=== PATIENT | female | born 1955 ===

== ENCOUNTER 2023-11-16 09:16 | Outpatient (AMB) | payer MEDICAID, SELFPAY ==
--- NOTE | 2023-11-16 09:18 | A.OFFVIS_ITS ---
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 She reports that the pain started 4 months ago. She denies injury or a fall. She also reports having arthritis in her feet. She reports pain travels up from her right side and travels all the way up the right side of her body. Strategic Development Manager Required: Yes Strategic Development Manager Services: Strategic Development Manager Present Strategic Development Manager Name: [id number] Allergies No Known Allergies Allergy (Verified 11/16/23 09:25) Medication List - Last Reconciled 11/16/23 by Maeve Oakes RN acetaminophen 650 mg PO Q6H PRN diclofenac sodium 1% (Arthritis Pain (diclofenac)) 2 grams topical QID omeprazole 10 mg PO DAILY HPI Comments Details: New onset back pain, without inciting injuries. Across the back, going to right side, to the groin, thigh, calf and ankle. Feels like electricity and some stabbing pain. Denies numbness. More pain with raising right leg. No imaging. Referred by PCP to PT but has not yet started. She says it is because she is to have bowel surgery for diverticulitis and she plans to start PT after surgery. Surgery not yet scheduled yet, getting clearance first. She does not think the back pain and abdominal pain are associated. She also suffers from left knee pain, from DJD. Affects her gait and getting up. Review of Systems Const All systems reviewed & are unremarkable except as noted in HPI and below Physical Exam Constitutional: Patient appears to be in no acute distress, well nourished and well developed. Patient was appropriately conversant and oriented. Good historian. MSK: No specific abnormalities found on inspection of the spine and all extremities. No pain with palpation over the lumbar area or spinous processes or paraspinals. The right SI joint. Tender right groin. Lumbar ROM was full. Bilateral hip, knee and ankle ROM WNL. No ligamentous laxity or crepitance. No increased effusion. Straight-leg raising test and slump sit positive right. FABERE test negative. Give-way weakness on right hip flexion due to pain. Neurological: No footdrop. Savage?s negative bilaterally. Babinski was down going bilaterally. Clonus was negative. Gait is antalgic without loss of balance. Results Reviewed Results Reviewed: I reviewed records from the following: [facility] Assessment & Plan Assessment & Plan (1) Degenerative joint disease of right hip: Code(s): M16.11 - Unilateral primary osteoarthritis, right hip Category: Medical Qualifiers: Osteoarthritis type: primary Qualified Code(s): M16.11 - Unilateral primary osteoarthritis, right hip (2) Sacroiliac joint dysfunction of right side: Code(s): M53.3 - Sacrococcygeal disorders, not elsewhere classified Category: Medical (3) Right lumbar radiculitis: Code(s): M54.16 - Radiculopathy, lumbar region Category: Medical Plan Acute onset right-sided back and hip pain, without inciting injuries. Differential diagnosis: Right hip DJD causing the right groin pain versus right SI joint dysfunction versus right lumbar radiculitis. Can take Tylenol only. Unable to take/prescribe NSAIDs or oral prednisone burst due to upcoming bowel surgery and history of gastritis. We will send for x-rays: Lumbar and hip. Depending on results, may need further imaging. Encouraged to start physical therapy [facility] regardless of bowel surgeries schedule. New referral placed. Assessment and plan discussed with patient, and patient was agreeable. All questions were answered thoroughly. Peggy Lara MD, TENISHA Board Certified, [place] [employer] and [employer] (ABPMR) Board Certified, [place] [employer] (ABEM) Orders: Orders XR lumbar spine 2-3V Today M54.9 - Dorsalgia, unspecified XR hip RT min 2V Today M25.551 - Pain in right hip PT Evaluation and Treatment Today M16.11 - Unilateral primary osteoarthritis, right hip, M53.3 - Sacrococcygeal disorders, not elsewhere classified, M54.16 - Radiculopathy, lumbar region Coding Level of Care Code New Pt Level 4 (34757) Diagnoses Primary osteoarthritis of right hip M16.11 Osteoarthritis type: primary Sacroiliac joint dysfunction of right side M53.3 Right lumbar radiculitis M54.16
== END 2023-11-16 10:06 | disposition home or self-care (01) ==
PROVIDERS: PCP Student in an Organized Health Care Education/Training Program; Visit Provider Physical Medicine & Rehabilitation
DX: M16.11 Unilateral primary osteoarthritis, right hip (principal); M53.3 Sacrococcygeal disorders, not elsewhere classified; M54.16 Radiculopathy, lumbar region
CPT/HCPCS: 99204

== ENCOUNTER 2023-11-16 09:16 | Outpatient (REF) | payer MEDICAID, SELFPAY ==
--- NOTE | ~2023-11-16 | XR_ITS ---
EXAMINATION: XR HIP, RIGHT CLINICAL INFORMATION: M25.551 - Pain in right hip COMPARISON: None available. TECHNIQUE: Two views of the right hip. FINDINGS: No fracture. Alignment is anatomic. Hip joint space is maintained. Soft tissues are unremarkable. XR/XR hip RT min 2V IMPRESSION: Normal right hip. Electronically signed by: Edwin Jernigan MD 01/26/2024 02:55 PM EST
--- NOTE | ~2023-11-16 | XR_ITS ---
EXAMINATION: XR LUMBOSACRAL SPINE CLINICAL INFORMATION: M54.9 - Dorsalgia, unspecified COMPARISON: None available. TECHNIQUE: Three views of the lumbosacral spine. FINDINGS: There is a mild right convex scoliosis. There is a normal lordosis. There is no subluxation, compression deformity, or focal bone lesion. There are no fractures. There are early degenerative disc changes and mild degenerative facet changes most notable L4-S1. Soft tissues demonstrate cholecystectomy clips. XR/XR lumbar spine 2-3V IMPRESSION: 1. No acute findings and lumbar spine. 2. Mild right convex scoliosis and mild spondylosis. Electronically signed by: Edwin Jernigan MD 01/26/2024 02:57 PM EST
== END 2023-11-16 09:17 | disposition home or self-care (01) ==
LOC: HO.XRAY 09:16
PROVIDERS: PCP Student in an Organized Health Care Education/Training Program; Visit Provider Physical Medicine & Rehabilitation
DX: M54.9 Dorsalgia, unspecified (principal); M25.551 Pain in right hip
CPT/HCPCS: 72100; 73502; 99202

== ENCOUNTER → 2023-11-16 10:02 | Outpatient (BNV) | payer MEDICARE, MEDICAID, SELFPAY | PROVIDERS: PCP Student in an Organized Health Care Education/Training Program; Visit Provider Radiology Diagnostic Radiology | DX: M41.86 Other forms of scoliosis, lumbar region (principal); M25.551 Pain in right hip | CPT/HCPCS: 72100; 73502 ==